=== PATIENT | female | born 1975 | race Caucasian/White ===

== ENCOUNTER 2017-02-02 12:46 | Emergency (ER) | payer SELFPAY ==
[~2017-02-02] VITALS: Ht 160 cm; Wt 52.2 kg
[2017-02-02] MEDS ORDERED: LORAZEPAM 2 MG/1 ML VIAL IM ONE (13:00)
[2017-02-02] MEDS ORDERED: LORAZEPAM 2 MG/1 ML VIAL ONE (13:10)
--- NOTE | 2017-02-02 13:15 | NUR ---
BIB EMS FOR ALTERED BEHAVIOR. PATIENT SMELLS LIKE ALCOHOL. SHE IS SPEAKING VERY FAST AND IS GOING FROM ONE SUBJECT TO ANOTHER. SHE DENIES USING DRUGS OR ALCOHOL. LISBETH CHEST PAIN OR SOB. PLACED ON MONITOR, SONU KEEPS REMOVING THE MONITOR LEADS.
--- NOTE | 2017-02-02 14:05 | NUR ---
PATIENT REFUSED BLOOD TESTS AND ATIVAN. DR MELGOZA WAS IN THE ROOM ATTHE TIME SHE REFUSED AND IS AWARE. PATIENT STATES SHE FEELS FINE AND SHE WANTS TO LEAVE STATING "I AM MARRYING [facility] THIS WEEK AND WE BOUGHT A HOUSE YESTERDAY."
--- NOTE | 2017-02-02 14:48 | NUR ---
DC AND FOLLOW UP INSTRUCTIONS GIVEN AND EXPLAINED TO PATIENT WHO STATES SHE UNDERSRANDS ALL INSTRUCTIONS. SHE IS AMBULATORY WITH STEADY GAIT. SHE STATES SHE DOES NOT DRIVE AND HAS A RIDE HOME. SHE HAD SOME JUICE WHILE IN THE ER. SHE DENIES PAIN, CHEST PAIN OR SOB. HEAR RATE VIA RADIAL PULSE WAS 118. PATIENT REFUSED TO BE PLACED ON A MONITOR.
== END 2017-02-02 14:53 | disposition home or self-care (01) ==
LOC: ER 12:46
DX: F15.10 Other stimulant abuse, uncomplicated (principal); R41.82 Altered mental status, unspecified
CPT/HCPCS: A4663; J2060